=== PATIENT | female | born 1985 | race Caucasian/White ===

== ENCOUNTER 2017-12-24 08:48 | Emergency (ER) | payer OTHER ==
[~2017-12-24] VITALS: Ht 162.6 cm; Wt 80.7 kg
[2017-12-24 11:38] LABS: CALCIUM 8.2 mg/dL (8.5-10.1); CARBON DIOXIDE 25.5 mmol/L (21-32); CHLORIDE SERUM 105 mmol/L (98-107); CREATININE SERUM 0.8 mg/dL (0.6-1.0); GFR1 > 60 mL/min; GLUCOSE SERUM 147 mg/dL (74-106); POTASSIUM SERUM 3.4 mmol/L (3.5-5.1); SODIUM SERUM 143 mmol/L (136-145)
[2017-12-24 12:31] VITALS: BP 118/75
== END 2017-12-24 12:31 | disposition home or self-care (01) ==
LOC: ED 08:48
PROVIDERS: Emergency Medicine
DX: B34.9 Viral infection, unspecified (principal); E86.0 Dehydration; J45.909 Unspecified asthma, uncomplicated; Z88.1 Allergy status to other antibiotic agents
CPT/HCPCS: J1885; J7613; J7644; Q0092

== ENCOUNTER 2017-12-28 10:03 | Emergency (ER) | payer OTHER ==
[~2017-12-28] VITALS: Ht 162.6 cm; Wt 78.9 kg
[2017-12-28 10:25] VITALS: Ht 162.6 cm; Wt 78.9 kg
[2017-12-28 13:05] VITALS: BP 122/79
== END 2017-12-28 13:05 | disposition home or self-care (01) ==
LOC: ED 10:03
DX: J01.10 Acute frontal sinusitis, unspecified (principal); R19.7 Diarrhea, unspecified; R09.89 Other specified symptoms and signs involving the circulatory and respiratory systems; J45.909 Unspecified asthma, uncomplicated; Z88.1 Allergy status to other antibiotic agents

== ENCOUNTER 2018-04-26 08:09 | Emergency (ER) | payer OTHER ==
[~2018-04-26] VITALS: Ht 162.6 cm; Wt 81.0 kg
[2018-04-26 08:14] VITALS: BP 138/85; Ht 162.6 cm; Wt 81.0 kg
== END 2018-04-26 09:01 | disposition home or self-care (01) ==
LOC: ED 08:09
DX: J30.9 Allergic rhinitis, unspecified (principal); Z88.1 Allergy status to other antibiotic agents

== ENCOUNTER 2018-09-24 14:06 | Emergency (ER) | payer OTHER ==
[~2018-09-24] VITALS: Ht 162.6 cm; Wt 79.8 kg
[2018-09-24 14:16] VITALS: Ht 162.6 cm; Wt 79.8 kg
[2018-09-24 15:36] VITALS: BP 116/73
== END 2018-09-24 15:36 | disposition home or self-care (01) ==
LOC: ED 14:06
DX: J20.9 Acute bronchitis, unspecified (principal); R51 Headache; J45.909 Unspecified asthma, uncomplicated; Z88.1 Allergy status to other antibiotic agents
CPT/HCPCS: J1885; J7613; J7644; Q0162

== ENCOUNTER 2019-01-02 11:57 | Emergency (ER) | payer OTHER ==
[~2019-01-02] VITALS: Ht 162.6 cm; Wt 79.8 kg
[2019-01-02 12:00] VITALS: Ht 162.6 cm; Wt 79.8 kg
[2019-01-02 13:40] VITALS: BP 126/76
== END 2019-01-02 13:40 | disposition home or self-care (01) ==
LOC: ED 11:57
DX: B34.9 Viral infection, unspecified (principal); J45.909 Unspecified asthma, uncomplicated; Z88.1 Allergy status to other antibiotic agents

== ENCOUNTER 2019-07-06 09:17 | Emergency (ER) | payer OTHER ==
[~2019-07-06] VITALS: Ht 162.6 cm; Wt 81.2 kg
[2019-07-06 09:37] VITALS: Ht 162.6 cm; Wt 81.2 kg
[2019-07-06 10:17] VITALS: BP 125/83
== END 2019-07-06 10:17 | disposition home or self-care (01) ==
LOC: ED 09:17
DX: J06.9 Acute upper respiratory infection, unspecified (principal); J45.909 Unspecified asthma, uncomplicated; Z88.0 Allergy status to penicillin